=== PATIENT | female | born 1995 | race African-American/Black ===

== ENCOUNTER 2024-11-06 08:28 | Emergency (ER) | payer SELFPAY ==
[2024-11-06 08:43] VITALS: BP 126/83; PULSE 84; RESP 16; TEMP 36.4; O2SAT 100
--- NOTE | 2024-11-06 08:58 | ED_ITS ---
HPI - URI/Sore Throat General Chief Complaint: Upper Respiratory Infection Stated Complaint: Cough/chest congestion Time Seen by Provider: 11/06/24 08:58 Source: patient Mode of arrival: ambulatory Limitations: no limitations History of Present Illness HPI Narrative: 28-year-old female presents with complaint mild congestion, runny nose, postnasal drainage, hoarse voice for the past week. Patient reports dry cough over the last 2-3 days. Afebrile. No chest pain or shortness of breath. Not taking any zhyx-kaz-[id number] medications to treat symptoms. Denies pain. All Systems reviewed and negative except as noted above. Related Data Allergies Allergy/AdvReac Type Severity Reaction Status Date / Time No Known Allergies Allergy Verified 11/06/24 08:55 Review of Systems Review of Systems: CONSTITUTIONAL: Denies fever, chills, or sweats. EYES: Denies visual changes, redness, or discharge. ENT: reports rhinorrhea, congestion, postnasal drainage. Denies sore throat, or otalgia. CARDIOVASCULAR: Denies chest pain, palpitations, or edema. RESPIRATORY: reports cough. Denies dyspnea. GASTROINTESTINAL: Denies abdominal pain, nausea, vomiting, or diarrhea. GENITOURINARY: Denies dysuria or hematuria. SKIN: Denies rash or itching. MUSCULOSKELETAL: Denies back pain, joint pain, or myalgia. NEUROLOGIC: Denies headache, numbness, or weakness. PSYCHIATRIC: Denies anxiety or depression. All other systems reviewed are negative, except as documented in HPI. PMFSH Comments At time of signature, agree with nursing past medical, surgical, social and family history. There is no relevant family history pertinent to the presenting complaint. Exam Narrative: GENERAL: This is a well-nourished, well-developed patient, in no apparent distress. HEAD: normocephalic, atraumatic. EYES: PERRL. Sclera clear/white. Vision is grossly intact. EARS: External ears normal, auditory canals clear and without drainage, TMs normal without perforation. Hearing grossly intact. NOSE: External nose normal with clear nasal drainage. No erythema or swelling to nares THROAT: Mucous membranes moist, clear postnasal drainage. No erythema, swelling or exudates. NECK: Neck supple, non-tender without lymphadenopathy, masses or thyromegaly. CARDIOVASCULAR: Regular rate and rhythm without murmurs, gallops, or rubs. RESPIRATORY: Clear to auscultation. Breath sounds equal bilaterally. No wheezes, rales, or rhonchi. SKIN: warm, Dry, intact with no suspicious lesions or rash, good texture and turgor. NEURO: awake, alert, and oriented to person, place and time. There were no obvious focal neurologic abnormalities. EXTREMITIES: No joint tenderness, effusion, or edema noted. Course Course Level of Care: Express Care Visit Vital Signs Vital signs: Vital Signs Temperature 36.4 C L 11/06/24 08:43 Pulse Rate 84 11/06/24 08:43 Respiratory Rate 16 11/06/24 08:43 Blood Pressure 126/83 11/06/24 08:43 Pulse Oximetry 100 11/06/24 08:43 Oxygen Delivery Room Air 11/06/24 08:43 Temperature 36.4 C L 11/06/24 08:43 Pulse Rate 84 11/06/24 08:43 Respiratory Rate 16 11/06/24 08:43 Blood Pressure 126/83 11/06/24 08:43 Pulse Oximetry 100 11/06/24 08:43 Oxygen Delivery Room Air 11/06/24 08:43 Reviewed MDM - URI/Sore Throat MDM Narrative Medical decision making narrative: patient well-appearing. Lungs clear to auscultation. Recommend she take hupv-eqs-zcaaety medications to treat viral symptoms. Patient is aware of diagnosis, understands and agrees to treatment plan. Anticipatory guidance given. Patient agrees to follow-up as directed and is aware of reasons to seek care at the emergency department. Portions of this record may have been created with voice recognition software Discharge Plan Discharge Clinical Impression: Acute rhinosinusitis Patient Disposition: Home, Self-Care Condition: Stable Instructions: Rhinosinusitis (ED) Additional Instructions: take medications as prescribed. Take eomz-okr-[id number] Mucinex as directed on packaging. Drink at least 64 oz of water a day. Place cool mist humidifier in bedroom where you sleep. Follow-up with your doctor if symptoms are not improving. Patient Language: Citizen Of [place] Prescriptions: New benzonatate 200 mg capsule 200 mg PO TID PRN (Reason: cough) Qty: 20 0RF methylprednisolone [Medrol (King)] 4 mg tablets,dose pack See Rx Instructions PO .COMPLEX Qty: 21 0RF Rx Instructions: orally per package directions loratadine [Claritin] 10 mg tablet 10 mg PO DAILY Qty: 30 0RF Follow-up/Referrals: PHYSICIAN,GRAPPLE YARDER OPERATOR [Primary Care Provider] - Time of Disposition: 09:05
== END 2024-11-06 09:16 | disposition home or self-care (01) ==
PROVIDERS: Emergency Provider Nurse Practitioner Family
DX: J01.90 Acute sinusitis, unspecified (principal)
CPT/HCPCS: 99203; G0463

== ENCOUNTER 2025-09-29 16:07 | Emergency (ER) | payer OTHER, SELFPAY ==
--- NOTE | 2025-09-29 16:12 | ED.DENTAL ---
HPI - Dental/Oral General Chief complaint: Dental/Oral Stated complaint: Dental Pain Time Seen by Provider: 09/29/25 16:12 Source: patient Mode of arrival: ambulatory Limitations: no limitations History of Present Illness HPI Narrative: Beatriz is a 29 year old female patient presenting to the clinic today with c/o dental pain x2-3 days. She reports pain to the left lower posterior molar with gingival swelling. No fever, chills, or body aches. Has been taking ibuprofen for pain. Related Data Allergies Allergy/AdvReac Type Severity Reaction Status Date / Time No Known Allergies Allergy Verified 09/29/25 16:18 Review of Systems Review of Systems: Pertinent positives per HPI. Patient denies any fever, chills, rash, headache, visual changes, dizziness, cough, shortness of breath, chest pain, palpitations, nausea, vomiting, diarrhea, constipation, abdominal pain, or any urinary issues. PMFSH Comments At the time of my signature, I reviewed and agree with the nursing past medical, surgical, social, and family history. There is no relevant family history pertinent to the patient complaint. Exam Narrative: General: Well-developed, well nourished, in no apparent distress Head: Normocephalic, atraumatic Eyes: Pupils equally round and reactive to light bilaterally, EOM intact, sclera and conjunctive clear, no discharge, lids normal Ears: TMs intact and clear, ear canals clear, no drainage, grossly hearing normal. Nose: Nares patent, no discharge, no inflammation, no sinus tenderness. Mouth: Oral pharynx without lesions or masses, good dentition, MMM. Neck: Supple, trachea midline, no enlargement of anterior or posterior cervical nodes, no thyroid masses or goiter palpable. Cardio: Regular rate and rhythm, s1 and s2 normal, no murmur appreciated. Resp: Clear to auscultation bilaterally, no rhonchi, rales, wheezing or rubs Course Course Level of Care: Express Care Visit Vital Signs Vital signs: Vital Signs Temperature 36.8 C 09/29/25 16:15 Pulse Rate 95 09/29/25 16:15 Respiratory Rate 16 09/29/25 16:15 Blood Pressure 130/81 09/29/25 16:15 Pulse Oximetry 100 09/29/25 16:15 Oxygen Delivery Room Air 09/29/25 16:15 Temperature 36.8 C 09/29/25 16:15 Pulse Rate 95 09/29/25 16:15 Respiratory Rate 16 09/29/25 16:15 Blood Pressure 130/81 09/29/25 16:15 Pulse Oximetry 100 09/29/25 16:15 Oxygen Delivery Room Air 09/29/25 16:15 MDM MDM Narrative Medical decision making narrative: At the time of visit patient is resting comfortably on the exam table. Patient appears to be nontoxic. c/o dental pain x2-3 days. She reports pain to the left lower posterior molar with gingival swelling. No fever, chills, or body aches. Has been taking ibuprofen for pain. On exam patient has tenderness to palpation over the left posterior lower molar with some swelling of the gingiva around the tooth. No visible or palpable abscess. Patient has appointment dentist on of this week. Plan: I suspect patient has dental pain/gingival swelling to the left posterior molar. Prescription for amoxicillin was sent to the pharmacy. Patient has appointment with dentist on . Supportive measures were discussed with the patient and they voiced understanding discharge instructions and agrees to treatment plan. Return precautions reviewed Differential Diagnosis Differential Diagnosis: Dental abscess, dental infection, stomatitis, canker sore/ulcer, toothache, periodontal disease, dental decay Discharge Plan Discharge Clinical Impression: Toothache Patient Disposition: Home Condition: Stable Instructions: Antibiotic Form, Toothache (ED) Additional Instructions: Take medications as prescribed-amoxicillin Increase fluids and stay well hydrated May take Tylenol/Motrin as needed for pain or fever May apply Orajel to the affected area to help alleviate pain May apply warm or cool compress to the affected area to help alleviate pain Follow-up with your dentist as soon as possible Patient Language: Welsh Prescriptions: New amoxicillin 875 mg tablet 875 mg PO Q12H 10 Days Qty: 20 0RF Follow-up/Referrals: PHYSICIAN,MONOGRAM AND LETTER PASTER [Primary Care Provider, Internal Medicine] Time of Disposition: 16:17 Quality NIHSS Nursing Documentation ED NIHSS nursing documentation: reviewed/agree
[2025-09-29 16:15] VITALS: BP 130/81; PULSE 95; RESP 16; TEMP 36.8; O2SAT 100
== END 2025-09-29 16:24 | disposition home or self-care (01) ==
PROVIDERS: Emergency Provider Nurse Practitioner Family
DX: K08.89 Other specified disorders of teeth and supporting structures (principal)
CPT/HCPCS: 99213; G0463